=== PATIENT | female | born 1980 | race Caucasian/White ===

== ENCOUNTER 2016-11-18 19:55 | Emergency (ER) | payer OTHER ==
[~2016-11-18] VITALS: Ht 154.9 cm; Wt 62.1 kg
[~2016-11-18 19:55] MED LIST: CIPRO500 MG PO; CLONAZEPAM1 MG PO; DILAUDID4 MG PO; ESSENTIAL WOMA1 EAC1 PO; ESTRADIOL1 MG PO; FENTANYL1 EAC4 TD; FENTANYL1 EAC5 TD; FLORINEF ACETA0.1 MG PO; HYDROMORPHONE HC4 MG PO; KLONOPIN1 MG PO; MIDODRINE HCL5 MG PO; MOTRIN600 MG PO; MOTRIN800 MG PO; NAPROSYN375 MG PO; NAPROXEN500 MG PO; PHENERGAN12.5 MG PR; REGLAN10 MG PO; TYLENOL EXTRA500 MG PO; VOLTAREN 1% GE100 GM TP; ZOFRAN ODT4 MG PO; ZOFRAN4 MG PO; ZOLPIDEM TART12.5 MG PO
[2016-11-18 21:38] VITALS: BP 106/76
== END 2016-11-18 21:33 | disposition home or self-care (01) ==
LOC: EME 19:55 → RME 19:55 → EME 21:33
DX: S93.401A Sprain of unspecified ligament of right ankle, initial encounter (principal); S93.601A Unspecified sprain of right foot, initial encounter; X58.XXXA Exposure to other specified factors, initial encounter; Z88.1 Allergy status to other antibiotic agents; Z88.6 Allergy status to analgesic agent
CPT/HCPCS: 73610; 99281; 99283

== ENCOUNTER 2017-02-19 09:46 | Observation (INO) | payer OTHER ==
[~2017-02-19] VITALS: Ht 154.9 cm; Wt 65.4 kg
[2017-02-19 10:44] LABS: MCH 28.2 PG (29.0-34.0); MCHC 32.4 G/DL (30.0-36.0); MEAN PLAT.VOLUME 9.4 uM^3 (9.5-12.4); PLATELET COUNT 305 K/uL (156-360); RBC DIS.WIDTH-CV 12.9 % (11.8-14.6); RBC DIS.WIDTH-SD 40.8 % (39-53); RED BLOOD COUNT 4.83 M/uL (3.80-5.20); WHITE BLOOD COUNT 12.9 K/uL (4.1-10.2)
[2017-02-19 10:56] LABS: CHLORIDE 105 mEq/L (99-109); POTASSIUM 3.5 mEq/L (3.7-5.4); SODIUM 142 mEq/L (136-147)
[2017-02-19 10:58] LABS: GLUCOSE 76 mg/dL (70-99)
[2017-02-19 10:59] LABS: ANION GAP 9 MEQ/L (2-14)
[2017-02-19 11:01] LABS: GFR ESTIMATE (CALCULATED) > 59 mL/min/
[2017-02-19 11:02] LABS: UREA NITROGEN (BUN) 8 mg/dL (9-23)
[2017-02-19 13:11] LABS: TROP-I INTERPRETATION NEGATIVE; TROPONIN-I < 0.01 ng/mL (0.0-0.30)
[2017-02-19 13:31] LABS: ERTH.SED.RATE 19 MM/HR (0-20)
[2017-02-19 14:03] LABS: C-REACTIVE PROTEIN 15.7 MG/L (0-10); SAMPLE HEMOLYSIS CHECK 0; SAMPLE ICTERIC CHECK 0; SAMPLE LIPEMIA CHECK 0
[2017-02-19] MEDS ORDERED: ATORVASTATIN CA10 MG PO (15:30)
[2017-02-19] MEDS ORDERED: CYCLOBENZAPRINE10 MG PO (15:31)
[2017-02-19] MEDS ORDERED: HYDROMORPHONE HC4 MG PO (15:32)
[2017-02-19] MEDS ORDERED: ESTRADIOL2 MG PO (15:32)
[2017-02-19] MEDS ORDERED: DESYREL100 MG PO (15:33)
[2017-02-19 16:33] LABS: TROP-I INTERPRETATION NEGATIVE; TROPONIN-I < 0.01 ng/mL (0.0-0.30)
[2017-02-19 20:08] LABS: SERUM ETHYL ALCOHOL < 10 mg/dL
[2017-02-19 20:17] LABS: Estimated Average Glucose 108 mg/dL (70-123); HEMOGLOBIN A1c (GLYCOHEMOGLOB) 5.4 % HGB (Below 5.7)
[2017-02-19 21:10] VITALS: BP 108/65
[2017-02-19 21:39] LABS: HDL CHOLESTEROL 35 MG/DL (Desirable>=50); LDL CHOLESTEROL 44 mg/dL (Desirable<100); NON-HDL CHOLESTEROL 109 mg/dL (Desirable<160); TOTAL CHOLESTEROL 144 mg/dL (Desirable<200); TRIGLYCERIDES 323 MG/DL (Normal: <150)
[2017-02-20 00:06] VITALS: BP 91/49
[2017-02-20 00:31] VITALS: BP 91/60
[2017-02-20 03:19] LABS: AMPHETAMINES QUANT VALUE 0 NG/ML; BARBITUATES QUANT VALUE 0 NG/ML; BENZODIAZEPINES QUANT VALUE 0 NG/ML; BENZODIAZEPINES, URINE SCREEN Negative (200 ng/mL); MARIJUANA QUANT VALUE 0 NG/ML; OPIATES QUANTITATIVE VALUE 0 NG/ML; PHENCYCLIDINE QUANT VALUE 0 NG/ML
[2017-02-20 04:00] VITALS: BP 102/67
[2017-02-20 08:00] VITALS: BP 101/59
[2017-02-20 11:15] VITALS: BP 98/56
[2017-02-20 11:48] LABS: TROP-I INTERPRETATION NEGATIVE; TROPONIN-I < 0.01 ng/mL (0.0-0.30)
[2017-02-20] MEDS ORDERED: ASPIR-LOW81 MG PO (12:36)
[2017-02-20 15:04] VITALS: BP 93/54
== END 2017-02-20 16:58 | disposition home or self-care (01) ==
LOC: EME 09:46 → EDOF 19:26 → 5WEST 19:26 → EDOF 19:26 → ENRESERV 19:30 → 5WEST 20:58
PROVIDERS: Internal Medicine; Physician Assistant; Physician Assistant Medical
DX: G43.909 Migraine, unspecified, not intractable, without status migrainosus (principal); I34.1 Nonrheumatic mitral (valve) prolapse; I44.7 Left bundle-branch block, unspecified; G89.29 Other chronic pain; F11.20 Opioid dependence, uncomplicated; N20.0 Calculus of kidney; F41.9 Anxiety disorder, unspecified; J02.9 Acute pharyngitis, unspecified; R07.89 Other chest pain; D72.829 Elevated white blood cell count, unspecified
CPT/HCPCS: 70450; 70551; 71020; 72141; 80048; 80061; 80306 90; 82607; 83036; 84443; 84484; 85027; 85651; 86140; 93005; 99281; 99285; G0378; G0480; J1110; J1170; J1200; J1885; J2765; J2930; J7030

== ENCOUNTER 2017-02-23 15:15 | Emergency (ER) | payer OTHER ==
[~2017-02-23] VITALS: Ht 162.6 cm; Wt 62.4 kg
[~2017-02-23 15:15] MED LIST changes: +ASPIR-LOW81 MG PO; +ATORVASTATIN CA10 MG PO; +CYCLOBENZAPRINE10 MG PO; +DESYREL100 MG PO; +ESTRADIOL2 MG PO
[2017-02-23 15:39] LABS: HEMATOCRIT 40.6 % (36.0-46.0); MCH 28.4 PG (29.0-34.0); MEAN PLAT.VOLUME 9.7 uM^3 (9.5-12.4); PLATELET COUNT 287 K/uL (156-360); RBC DIS.WIDTH-CV 12.7 % (11.8-14.6); RBC DIS.WIDTH-SD 39.8 % (39-53); RED BLOOD COUNT 4.72 M/uL (3.80-5.20); WHITE BLOOD COUNT 15.3 K/uL (4.1-10.2)
[2017-02-23 15:55] LABS: CHLORIDE 104 mEq/L (99-109); POTASSIUM 3.5 mEq/L (3.7-5.4); SODIUM 140 mEq/L (136-147)
[2017-02-23 15:56] LABS: GLUCOSE 99 mg/dL (70-99)
[2017-02-23 15:58] LABS: ANION GAP 9 MEQ/L (2-14)
[2017-02-23 16:00] LABS: GFR ESTIMATE (CALCULATED) > 59 mL/min/
[2017-02-23 16:01] LABS: UREA NITROGEN (BUN) 11 mg/dL (9-23)
[2017-02-23 16:05] LABS: TROP-I INTERPRETATION NEGATIVE; TROPONIN-I < 0.01 ng/mL (0.0-0.30)
[2017-02-23 16:08] LABS: QUANTITATIVE HCG < 4.0 MIU/ML
[2017-02-23] MEDS ORDERED: PEPCID20 MG PO (19:34)
[2017-02-23] MEDS ORDERED: ROBITUSSIN NIG237 ML PO (20:01)
[2017-02-23 20:26] VITALS: BP 119/78
== END 2017-02-23 20:29 | disposition home or self-care (01) ==
LOC: EME 15:15
PROVIDERS: Emergency Medicine
DX: K29.70 Gastritis, unspecified, without bleeding (principal); K20.9 Esophagitis, unspecified; J45.909 Unspecified asthma, uncomplicated; F41.9 Anxiety disorder, unspecified; F32.9 Major depressive disorder, single episode, unspecified; Z88.5 Allergy status to narcotic agent; Z88.1 Allergy status to other antibiotic agents; Z88.8 Allergy status to other drugs, medicaments and biological substances
CPT/HCPCS: 71010; 71275; 80048; 84484; 84702; 85027; 85379; 93005; 99281; 99285

== ENCOUNTER 2017-05-12 12:12 | Emergency (ER) | payer OTHER ==
[~2017-05-12] VITALS: Ht 154.9 cm; Wt 63.6 kg
[~2017-05-12 12:12] MED LIST changes: +PEPCID20 MG PO; +ROBITUSSIN NIG237 ML PO
[2017-05-12 12:54] LABS: HEMATOCRIT 36.8 % (36.0-46.0); HEMOGLOBIN 12.3 G/DL (11.9-15.5); MCH 28.7 PG (29.0-34.0); MCHC 33.4 G/DL (30.0-36.0); PLATELET COUNT 260 K/uL (156-360); RBC DIS.WIDTH-CV 13.1 % (11.8-14.6); RBC DIS.WIDTH-SD 41.1 % (39-53); RED BLOOD COUNT 4.28 M/uL (3.80-5.20); WHITE BLOOD COUNT 7.7 K/uL (4.1-10.2)
[2017-05-12 13:15] LABS: ALBUMIN 4.2 g/dL (3.2-4.8)
[2017-05-12 13:17] LABS: GLUCOSE 90 mg/dL (70-99)
[2017-05-12 13:18] LABS: TOTAL PROTEIN 7.4 g/dL (6.4-8.3)
[2017-05-12 13:19] LABS: TOTAL BILIRUBIN 0.3 mg/dL (0.0-1.0)
[2017-05-12 13:21] LABS: ALKALINE PHOSPHATASE 57 IU/L (3-129); CREATININE 0.9 mg/dL (0.6-1.3); GFR ESTIMATE (CALCULATED) > 59 mL/min/
[2017-05-12 13:22] LABS: UREA NITROGEN (BUN) 12 mg/dL (9-23)
[2017-05-12 13:23] LABS: AST (GOT) 21 IU/L (2-34)
[2017-05-12 13:24] LABS: ALT (GPT) 19 IU/L (3-49)
[2017-05-12 13:30] LABS: CHLORIDE 107 mEq/L (99-109); POTASSIUM 3.8 mEq/L (3.7-5.4); SODIUM 141 mEq/L (136-147)
[2017-05-12 13:32] LABS: QUANTITATIVE HCG < 4.0 MIU/ML
[2017-05-12 13:37] LABS: LIPASE 26 U/L (1.0-51.0)
[2017-05-12 15:25] LABS: APPEARANCE CLEAR ((CLEAR)); BILIRUBIN NEGATIVE; BLOOD NEGATIVE; COLOR YELLOW ((YELLOW)); GLUCOSE (STRIP) NEGATIVE; KETONES 5; LEUKOCYTES NEGATIVE; NITRITE NEGATIVE; PROTEIN (STRIP) NEGATIVE; SPECIFIC GRAVITY 1.023 (1.000-1.030); UCUL ADDED? NO; UROBILINOGEN 0.2 MG/DL (0.2-1.0)
[2017-05-12] MEDS ORDERED: ZOFRAN ODT8 MG PO (16:11)
[2017-05-12] MEDS ORDERED: BENTYL20 MG PO (16:11)
[2017-05-12 16:24] VITALS: BP 117/66
== END 2017-05-12 16:24 | disposition home or self-care (01) ==
LOC: EME 12:12
DX: J11.1 Influenza due to unidentified influenza virus with other respiratory manifestations (principal); E86.0 Dehydration; J45.909 Unspecified asthma, uncomplicated; F32.9 Major depressive disorder, single episode, unspecified; F41.9 Anxiety disorder, unspecified; Z90.710 Acquired absence of both cervix and uterus; Z88.1 Allergy status to other antibiotic agents; Z88.5 Allergy status to narcotic agent; Z88.6 Allergy status to analgesic agent; Z88.8 Allergy status to other drugs, medicaments and biological substances
CPT/HCPCS: 80053; 81003; 83690; 84702; 85027; 99281; 99284; J0500; J1885; J2405; J7120

== ENCOUNTER 2017-06-05 17:24 | Emergency (ER) | payer OTHER ==
[~2017-06-05] VITALS: Ht 154.9 cm; Wt 61.3 kg
[~2017-06-05 17:24] MED LIST changes: +BENTYL20 MG PO; +ZOFRAN ODT8 MG PO
[2017-06-05 18:00] LABS: BASOPHIL (%) 0.3 % (0-1); EOSINOPHIL (%) 0.7 % (0-5); EOSINOPHIL COUNT 0.1 K/uL (0-0.3); HEMATOCRIT 42.7 % (36.0-46.0); IMMATURE GRANULOCYTE (%) 0.4 % (0.0-0.7); LYMPHOCYTE (%) 4.1 % (15-42); LYMPHOCYTE COUNT 0.5 K/uL (1.0-2.8); MCH 28.1 PG (29.0-34.0); MCHC 32.8 G/DL (30.0-36.0); MCV 85.7 FL (83-99); MONOCYTE (%) 2.8 % (3-12); MONOCYTE COUNT 0.4 K/uL (0-0.8); NEUTROPHIL (%) 91.7 % (45-76); NEUTROPHIL COUNT 12.2 K/uL (1.8-6.4); PLATELET COUNT 304 K/uL (156-360); RBC DIS.WIDTH-CV 12.9 % (11.8-14.6); RED BLOOD COUNT 4.98 M/uL (3.80-5.20); WHITE BLOOD COUNT 13.3 K/uL (4.1-10.2)
[2017-06-05 18:09] LABS: ALBUMIN 4.5 g/dL (3.2-4.8); CHLORIDE 108 mEq/L (99-109); POTASSIUM 3.8 mEq/L (3.7-5.4); SODIUM 139 mEq/L (136-147)
[2017-06-05 18:11] LABS: GLUCOSE 102 mg/dL (70-99)
[2017-06-05 18:12] LABS: TOTAL PROTEIN 8.1 g/dL (6.4-8.3)
[2017-06-05 18:13] LABS: TOTAL BILIRUBIN 0.8 mg/dL (0.0-1.0)
[2017-06-05 18:15] LABS: ALKALINE PHOSPHATASE 60 IU/L (3-129); CREATININE 0.8 mg/dL (0.6-1.3); GFR ESTIMATE (CALCULATED) > 59 mL/min/
[2017-06-05 18:16] LABS: UREA NITROGEN (BUN) 14 mg/dL (9-23)
[2017-06-05 18:17] LABS: AST (GOT) 15 IU/L (2-34); DIRECT BILIRUBIN 0.3 mg/dL (0.0-0.3)
[2017-06-05 18:18] LABS: ALT (GPT) 11 IU/L (3-49); LIPASE 29 U/L (1.0-51.0)
[2017-06-05 18:53] LABS: APPEARANCE SL.HAZY ((CLEAR)); BILIRUBIN NEGATIVE; BLOOD NEGATIVE; COLOR YELLOW ((YELLOW)); GLUCOSE (STRIP) NEGATIVE; KETONES 20; LEUKOCYTES NEGATIVE; NITRITE NEGATIVE; PROTEIN (STRIP) 30; SPECIFIC GRAVITY 1.028 (1.000-1.030); UROBILINOGEN 0.2 MG/DL (0.2-1.0)
[2017-06-05 18:57] LABS: BACTERIA RARE /HPF; EPITHELIAL CELLS 1+ /HPF; MUCUS 4+ /LPF; WHITE BLOOD CELLS 0-5 /HPF (0-5)
[2017-06-05 19:08] LABS: AMPHETAMINE NEGATIVE (500 ng/mL); BARBITURATES NEGATIVE (200 ng/mL); BENZODIAZEPINES NEGATIVE (150 ng/mL); BUPRENORPHINE NEGATIVE (10 ng/mL); COCAINE NEGATIVE (150 ng/mL); METHADONE NEGATIVE (200 ng/mL); METHAMPHETAMINE NEGATIVE (500 ng/mL); OPIATES (MORPHINE) PRESUMPTIVE POSITIVE (100 ng/mL); OXYCODONE NEGATIVE (100 ng/mL); PHENCYCLIDINE NEGATIVE (25 ng/mL); PROPOXYPHENE NEGATIVE (300 ng/mL); THC CANNABINOIDS NEGATIVE (50 ng/mL); TRICYCLIC ANTIDEPRESSANTS NEGATIVE (300 ng/mL)
[2017-06-05] MEDS ORDERED: BENTYL20 MG PO (21:14)
[2017-06-05] MEDS ORDERED: ZOFRAN ODT8 MG PO (21:14)
[2017-06-05 22:01] VITALS: BP 106/68
== END 2017-06-05 22:03 | disposition home or self-care (01) ==
LOC: EME 17:24
PROVIDERS: Physician Assistant
DX: R10.10 Upper abdominal pain, unspecified (principal); E86.0 Dehydration; R11.2 Nausea with vomiting, unspecified; J45.909 Unspecified asthma, uncomplicated; I34.1 Nonrheumatic mitral (valve) prolapse; Z90.710 Acquired absence of both cervix and uterus; Z90.49 Acquired absence of other specified parts of digestive tract; F32.9 Major depressive disorder, single episode, unspecified; F41.9 Anxiety disorder, unspecified; Z88.1 Allergy status to other antibiotic agents; Z88.6 Allergy status to analgesic agent
CPT/HCPCS: 74176; 76705; 80048; 80076; 81003; 83605; 83690; 84999; 85025; 87493; 99281; 99284; J0500; J1885; J2405; J7030; J7050

== ENCOUNTER 2017-10-01 23:50 | Emergency (ER) | payer OTHER ==
[~2017-10-01] VITALS: Ht 154.9 cm; Wt 64.0 kg
[2017-10-02 00:52] LABS: BASOPHIL (%) 0.9 % (0-1); BASOPHIL COUNT 0.1 K/uL (0-0.1); EOSINOPHIL (%) 4.7 % (0-5); EOSINOPHIL COUNT 0.5 K/uL (0-0.3); HEMATOCRIT 36.8 % (36.0-46.0); HEMOGLOBIN 12.2 G/DL (11.9-15.5); IMMATURE GRANULOCYTE (%) 0.3 % (0.0-0.7); LYMPHOCYTE (%) 17.2 % (15-42); LYMPHOCYTE COUNT 1.9 K/uL (1.0-2.8); MCHC 33.2 G/DL (30.0-36.0); MCV 84.6 FL (83-99); MONOCYTE (%) 4.4 % (3-12); MONOCYTE COUNT 0.5 K/uL (0-0.8); NEUTROPHIL (%) 72.5 % (45-76); NEUTROPHIL COUNT 7.9 K/uL (1.8-6.4); PLATELET COUNT 342 K/uL (156-360); RBC DIS.WIDTH-SD 40.3 % (39-53); RED BLOOD COUNT 4.35 M/uL (3.80-5.20); WHITE BLOOD COUNT 10.9 K/uL (4.1-10.2)
[2017-10-02 01:02] LABS: ALBUMIN 3.9 g/dL (3.2-4.8); CHLORIDE 105 mEq/L (99-109); SODIUM 139 mEq/L (136-147)
[2017-10-02 01:05] LABS: GLUCOSE 113 mg/dL (70-99); TOTAL PROTEIN 7.1 g/dL (6.4-8.3)
[2017-10-02 01:07] LABS: TOTAL BILIRUBIN 0.4 mg/dL (0.0-1.0)
[2017-10-02 01:08] LABS: ALKALINE PHOSPHATASE 67 IU/L (3-129); CREATININE 0.8 mg/dL (0.6-1.3); GFR ESTIMATE (CALCULATED) > 59 mL/min/
[2017-10-02 01:09] LABS: UREA NITROGEN (BUN) 10 mg/dL (9-23)
[2017-10-02 01:10] LABS: AST (GOT) 10 IU/L (2-34)
[2017-10-02 01:11] LABS: ALT (GPT) 6 IU/L (3-49)
[2017-10-02 01:17] LABS: QUANTITATIVE HCG < 4.0 MIU/ML
[2017-10-02 03:45] VITALS: BP 101/60
== END 2017-10-02 03:49 | disposition home or self-care (01) ==
LOC: EME 23:50
PROVIDERS: Emergency Medicine
DX: G43.909 Migraine, unspecified, not intractable, without status migrainosus (principal); F32.9 Major depressive disorder, single episode, unspecified; J45.909 Unspecified asthma, uncomplicated; F41.9 Anxiety disorder, unspecified; Z88.1 Allergy status to other antibiotic agents; Z88.8 Allergy status to other drugs, medicaments and biological substances
CPT/HCPCS: 80053; 84702; 85025; 99281; 99285; J1100; J1200; J1885; J2765; J7030

== ENCOUNTER 2017-10-29 15:35 | Emergency (ER) | payer OTHER ==
[~2017-10-29] VITALS: Ht 154.9 cm; Wt 68.0 kg
[2017-10-29] MEDS ORDERED: CLEOCIN300 MG PO (18:49)
[2017-10-29 19:41] VITALS: BP 100/61
== END 2017-10-29 19:41 | disposition home or self-care (01) ==
LOC: EME 15:35 → RME 15:35
DX: L03.115 Cellulitis of right lower limb (principal); M79.671 Pain in right foot; Z98.890 Other specified postprocedural states; J45.909 Unspecified asthma, uncomplicated; F32.9 Major depressive disorder, single episode, unspecified; F41.9 Anxiety disorder, unspecified; Z90.710 Acquired absence of both cervix and uterus; Z88.1 Allergy status to other antibiotic agents; Z88.5 Allergy status to narcotic agent; Z88.6 Allergy status to analgesic agent; Z88.8 Allergy status to other drugs, medicaments and biological substances
CPT/HCPCS: 73701; 99281; 99285; J2270; J2405; J7030

== ENCOUNTER 2017-11-01 11:56 | Emergency (ER) | payer OTHER ==
[~2017-11-01] VITALS: Ht 154.9 cm; Wt 69.5 kg
[~2017-11-01 11:56] MED LIST changes: +CLEOCIN300 MG PO
[2017-11-01 12:54] LABS: BASOPHIL (%) 1.5 % (0-1); BASOPHIL COUNT 0.1 K/uL (0-0.1); EOSINOPHIL (%) 8.5 % (0-5); EOSINOPHIL COUNT 0.6 K/uL (0-0.3); HEMATOCRIT 37.3 % (36.0-46.0); HEMOGLOBIN 12.4 G/DL (11.9-15.5); IMMATURE GRANULOCYTE (%) 0.4 % (0.0-0.7); LYMPHOCYTE COUNT 1.7 K/uL (1.0-2.8); MCH 28.2 PG (29.0-34.0); MCHC 33.2 G/DL (30.0-36.0); MCV 84.8 FL (83-99); MONOCYTE (%) 5.4 % (3-12); MONOCYTE COUNT 0.4 K/uL (0-0.8); NEUTROPHIL (%) 62.2 % (45-76); NEUTROPHIL COUNT 4.7 K/uL (1.8-6.4); NRBC (%) 0.3 /100 WBC (0-0); PLATELET COUNT 328 K/uL (156-360); RBC DIS.WIDTH-SD 40.1 % (39-53); WHITE BLOOD COUNT 7.6 K/uL (4.1-10.2)
[2017-11-01 13:03] LABS: CHLORIDE 108 mEq/L (99-109); POTASSIUM 4.1 mEq/L (3.7-5.4); SODIUM 143 mEq/L (136-147)
[2017-11-01 13:05] LABS: GLUCOSE 101 mg/dL (70-99)
[2017-11-01 13:09] LABS: CREATININE 0.8 mg/dL (0.6-1.3); GFR ESTIMATE (CALCULATED) > 59 mL/min/; UREA NITROGEN (BUN) 12 mg/dL (9-23)
[2017-11-01] MEDS ORDERED: KEFLEX500 MG PO (14:09)
[2017-11-01] MEDS ORDERED: LEVAQUIN750 MG PO (16:48)
[2017-11-01] MEDS ORDERED: DIFLUCAN150 MG PO (16:54)
[2017-11-01] MEDS ORDERED: ZOFRAN4 MG PO (16:54)
[2017-11-01 17:04] VITALS: BP 112/71
== END 2017-11-02 10:26 | disposition home or self-care (01) ==
LOC: EME 11:56
DX: L03.115 Cellulitis of right lower limb (principal); L02.611 Cutaneous abscess of right foot; J45.909 Unspecified asthma, uncomplicated; F41.9 Anxiety disorder, unspecified; F32.9 Major depressive disorder, single episode, unspecified; Z98.890 Other specified postprocedural states; Z90.710 Acquired absence of both cervix and uterus; Z88.1 Allergy status to other antibiotic agents; Z88.5 Allergy status to narcotic agent; Z88.6 Allergy status to analgesic agent; Z88.8 Allergy status to other drugs, medicaments and biological substances
CPT/HCPCS: 80048; 83605; 85025; 87070; 87075; 87077; 87147; 87186; 87205; 99281; 99284